=== PATIENT | female | born 1955 | race Caucasian/White ===

== ENCOUNTER 2018-01-11 16:08 | Inpatient (IN) | payer BC ==
[~2018-01-11] VITALS: Ht 172.7 cm; Wt 75.7 kg
[~2018-01-11 16:08] MED LIST: BUPIVACAINE /PF 0.5% 30 ML VIAL INJ ONE; GLYCOPYRROLATE 0.2 MG/ML VIAL IJ ONE; KETOROLAC TROMETHAMINE 30 MG VIAL IVP ONE; LR 1,000 ML IV.SOLN IV ONE; MIDAZOLAM HCL 5 MG/5 ML VIAL IVP ONE; NEOSTIGMINE METHYLSULFATE 1 MG/ML, 10 ML VIAL IVP ONE; NS 100 ML BAG IV ONE; ONDANSETRON HCL 4 MG/2 ML VIAL IVP ONE; PIPERACILLIN/TAZOBACTAM 3.375 GM/VIAL (ZOSYN) IV ONE; PROPOFOL 200MG/ 20ML VIAL (DIPRIVAN) IV ONE; ROCURONIUM BROMIDE 10 MG/ML (ZEMURON) IV ONE; SEVOFLURANE 15 MIN GAS INH ONE; fentaNYL CITRATE/PF 100 MCG/2 ML AMP IVP ONE
[2018-01-11 16:15] VITALS: BP_SYST 106
[2018-01-11] MEDS ORDERED: NACL 0.9% 1,000 ML IV ONE (19:32)
[2018-01-11] MEDS ORDERED: ONDANSETRON HCL 4 MG/2 ML VIAL IVP ONE (19:45)
[2018-01-11 20:19] LABS: BILIRUBIN,URINE NEGATIVE (NEGATIVE); CLARITY/URINE CLEAR (CLEAR); COLOR,URINE YELLOW (YELLOW); GLUCOSE,URINE NEGATIVE (NEGATIVE); KETONES,URINE TRACE (NEGATIVE); LEUKOCYTE ESTERASE ,URINE NEGATIVE (NEGATIVE); NITRITE, URINE NEGATIVE (NEGATIVE); PROTEIN URINE NEGATIVE (NEGATIVE); UROBILINOGEN,URINE 0.2 (0.2-1.0)
[2018-01-11 20:25] LABS: BLOOD, URINE TRACE (NEGATIVE)
[2018-01-11] MEDS ORDERED: MORPHINE 4 MG/ML INJ. SYRINGE IVP ONE (20:30)
[2018-01-11 20:38] LABS: BASOPHILS # (AUTO) 0.1 K/uL (0.0-0.2); BASOPHILS % (AUTO) 0.4 % (0.0-2.0); HEMATOCRIT 46.7 % (36-48); HEMOGLOBIN 15.4 g/dL (12.0-16.0); LYMPHOCYTES # (AUTO) 2.4 K/uL (1.0-5.5); LYMPHOCYTES % (AUTO) 14.5 % (20.5-51.5); MEAN CORPUSCULAR HEMOGLOBIN 32 pg (27-31); MEAN CORPUSCULAR HGB CONC 33 % (32-36); MEAN CORPUSCULAR VOLUME 96 fL (79.0-98.0); MONOCYTES # (AUTO) 0.4 K/uL (0.0-1.0); MONOCYTES % (AUTO) 2.1 % (1.7-9.3); NEUTROPHILS # (AUTO) 13.8 K/uL (1.8-7.7); PLATELET COUNT (AUTO) 218 K/uL (130-430); RED BLOOD CELL COUNT(AUTO) 4.86 MIL/uL (4.2-6.2); RED CELL DISTRIBUTION WIDTH 12.1 % (9.0-15.0); WHITE BLOOD COUNT (AUTO) 16.7 K/uL (4.8-10.8)
[2018-01-11 20:39] LABS: BACTERIA,URINE RARE /HPF (None Seen); MUCUS,URINE None Seen /LPF (None Seen); RBC,URINE 0-3 /HPF (0-3); WBC,URINE 0-3 /HPF (0-3)
[2018-01-11 20:41] LABS: CALCIUM 9.6 mg/dL (8.4-11.0); CREATININE 1.01 mg/dL (0.55-1.30); POTASSIUM 3.6 mmol/L (3.5-5.1)
[2018-01-11 20:42] LABS: PROTHROMBIN TIME 10.1 SECS (9.5-12.5)
[2018-01-11 20:45] LABS: TOTAL BILIRUBIN 1.1 mg/dL (0.0-1.0)
[2018-01-11] MEDS ORDERED: IOHEXOL 100 ML IV ONE (22:29)
[2018-01-11] MEDS ORDERED: DEXT10TA18 PO (23:22)
[2018-01-11] MEDS ORDERED: ESCI20TA PO (23:22)
[2018-01-11] MEDS ORDERED: PIPERACILLIN/TAZO 4.5 GM in NS 100 ML IV ONE (23:30)
[2018-01-11 23:51] VITALS: BP_SYST 99
[2018-01-12] VITALS (12 sets, daily range): BP systolic 82–130
[2018-01-12] MEDS ORDERED: DIPHENHYDRAMINE INJ 50 MG/ML VIAL IVP PRN (00:15)
[2018-01-12] MEDS ORDERED: ACETAMINOPHEN 650 MG SUPP.RECT RC PRN (00:15)
[2018-01-12] MEDS ORDERED: metroNIDAZOLE 500 mg/NS 100 ML IV ONE (00:39)
[2018-01-12] MEDS: D5LR 1,000 ML IV SCH ×4 (00:48→18:44)
[2018-01-12] MEDS ORDERED: PANTOPRAZOLE SODIUM 40 MG/VIAL (PROTONIX) IVP SCH (01:00)
[2018-01-12] MEDS: metroNIDAZOLE 500 mg/NS 100 ML IV SCH ×4 (01:56→23:55)
[2018-01-12 07:04] LABS: EOSINOPHILS % (AUTO) 0.1 % (0.0-4.0); HEMOGLOBIN 12.3 g/dL (12.0-16.0); LYMPHOCYTES # (AUTO) 1.6 K/uL (1.0-5.5); LYMPHOCYTES % (AUTO) 8.6 % (20.5-51.5); MEAN CORPUSCULAR HEMOGLOBIN 32 pg (27-31); MEAN CORPUSCULAR HGB CONC 34 % (32-36); MEAN CORPUSCULAR VOLUME 94 fL (79.0-98.0); MONOCYTES # (AUTO) 0.7 K/uL (0.0-1.0); MONOCYTES % (AUTO) 3.6 % (1.7-9.3); NEUTROPHILS # (AUTO) 16.1 K/uL (1.8-7.7); NEUTROPHILS % (AUTO) 87.7 % (40.0-70.0); PLATELET COUNT (AUTO) 177 K/uL (130-430); RED BLOOD CELL COUNT(AUTO) 3.83 MIL/uL (4.2-6.2); RED CELL DISTRIBUTION WIDTH 12.5 % (9.0-15.0); WHITE BLOOD COUNT (AUTO) 18.4 K/uL (4.8-10.8)
[2018-01-12 07:26] LABS: CALCIUM 8.3 mg/dL (8.4-11.0); CREATININE 0.97 mg/dL (0.55-1.30); POTASSIUM 3.8 mmol/L (3.5-5.1)
[2018-01-12 07:30] LABS: ALBUMIN 2.7 g/dL (3.4-4.8); TOTAL BILIRUBIN 0.8 mg/dL (0.0-1.0)
[2018-01-12] MEDS: PANTOPRAZOLE SODIUM 40 MG/VIAL (PROTONIX) IVP SCH (08:43)
[2018-01-12] MEDS ORDERED: KETOROLAC TROMETHAMINE 30 MG VIAL IVP PRN (15:00)
[2018-01-12] MEDS ORDERED: fentaNYL CITRATE/PF 100 MCG/2 ML AMP IVP PRN ×2 (15:00)
[2018-01-12] MEDS ORDERED: ONDANSETRON HCL 4 MG/2 ML VIAL IVP PRN (15:00)
[2018-01-12] MEDS ORDERED: fentaNYL CITRATE/PF 100 MCG/2 ML AMP ONE (16:18)
[2018-01-12] MEDS ORDERED: ONDANSETRON HCL 4 MG/2 ML VIAL ONE (16:20)
[2018-01-12] MEDS ORDERED: NACL 0.9% 1,000 ML IV ONE (17:00)
[2018-01-12 19:39] LABS: HEMATOCRIT 32.2 % (36-48); HEMOGLOBIN 10.3 g/dL (12.0-16.0); MEAN CORPUSCULAR HEMOGLOBIN 31 pg (27-31); MEAN CORPUSCULAR HGB CONC 32 % (32-36); MEAN CORPUSCULAR VOLUME 97 fL (79.0-98.0); PLATELET COUNT (AUTO) 161 K/uL (130-430); RED BLOOD CELL COUNT(AUTO) 3.31 MIL/uL (4.2-6.2); RED CELL DISTRIBUTION WIDTH 12.2 % (9.0-15.0); WHITE BLOOD COUNT (AUTO) 10.6 K/uL (4.8-10.8)
[2018-01-12] MEDS: DOPamine PREMIX 250 ML IV PRN ×2 (19:43→20:07)
[2018-01-12 19:53] LABS: ANION GAP 3 (5-15); CALCIUM 7.5 mg/dL (8.4-11.0); CHLORIDE 107 mmol/L (98-107); CREATININE 1.04 mg/dL (0.55-1.30); GLUCOSE 126 mg/dL (70-99); POTASSIUM 3.8 mmol/L (3.5-5.1); SODIUM SERUM 137 mmol/L (136-145); UREA NITROGEN, BLOOD 10 mg/dL (8-21)
[2018-01-12 19:54] LABS: GFR AFRICAN AMERICAN 69 mL/min (>90)
[2018-01-12 20:00] LABS: ATYPICAL LYMPHOCYTES % 0 % (0-0); BAND % (MANUAL) 20 % (0-6); EOSINOPHILS % (MANUAL) 0 % (0-7); LYMPHOCYTES % (MANUAL) 8 % (20-46); MONOCYTES % (MANUAL) 2 % (0-11)
[2018-01-12 20:01] LABS: BASOPHILS % (MANUAL) 0 % (0-2)
[2018-01-12] MEDS: ONDANSETRON HCL 4 MG/2 ML VIAL IVP PRN (21:06)
[2018-01-13] VITALS (24 sets, daily range): BP systolic 92–116
[2018-01-13] MEDS: MORPHINE 4 MG/ML INJ. SYRINGE IVP PRN ×3 (04:34→21:30)
[2018-01-13] MEDS: ONDANSETRON HCL 4 MG/2 ML VIAL IVP PRN (04:34)
[2018-01-13] MEDS: D5LR 1,000 ML IV SCH ×3 (06:31→17:09)
[2018-01-13 06:43] LABS: CALCIUM 8.1 mg/dL (8.4-11.0); CREATININE 0.92 mg/dL (0.55-1.30); POTASSIUM 3.4 mmol/L (3.5-5.1)
[2018-01-13 06:50] LABS: BASOPHILS # (AUTO) 0.2 K/uL (0.0-0.2); BASOPHILS % (AUTO) 1.8 % (0.0-2.0); EOSINOPHILS % (AUTO) 0.1 % (0.0-4.0); HEMATOCRIT 32.7 % (36-48); HEMOGLOBIN 10.4 g/dL (12.0-16.0); LYMPHOCYTES # (AUTO) 2.1 K/uL (1.0-5.5); LYMPHOCYTES % (AUTO) 15.4 % (20.5-51.5); MEAN CORPUSCULAR HEMOGLOBIN 31 pg (27-31); MEAN CORPUSCULAR HGB CONC 32 % (32-36); MEAN CORPUSCULAR VOLUME 97 fL (79.0-98.0); MONOCYTES # (AUTO) 0.3 K/uL (0.0-1.0); MONOCYTES % (AUTO) 1.9 % (1.7-9.3); NEUTROPHILS # (AUTO) 10.8 K/uL (1.8-7.7); NEUTROPHILS % (AUTO) 80.8 % (40.0-70.0); PLATELET COUNT (AUTO) 168 K/uL (130-430); RED BLOOD CELL COUNT(AUTO) 3.38 MIL/uL (4.2-6.2); RED CELL DISTRIBUTION WIDTH 12.5 % (9.0-15.0); WHITE BLOOD COUNT (AUTO) 13.4 K/uL (4.8-10.8)
[2018-01-13 06:54] LABS: ALBUMIN 2.3 g/dL (3.4-4.8); TOTAL BILIRUBIN 0.7 mg/dL (0.0-1.0)
[2018-01-13] MEDS: PANTOPRAZOLE SODIUM 40 MG/VIAL (PROTONIX) IVP SCH (08:16)
[2018-01-13] MEDS: metroNIDAZOLE 500 mg/NS 100 ML IV SCH ×3 (08:16→23:04)
[2018-01-13] MEDS ORDERED: POTASSIUM CHLORIDE 40 MEQ, LIDOCAINE JECT 2% PF 100 MG 50 MG in NS 250 ML IV ONE (08:45)
[2018-01-13] MEDS: KCL 20 mEq in D5/0.45NS 1000mL 1,000 ML IV SCH ×2 (10:19→23:04)
[2018-01-13] MEDS: DOPamine PREMIX 250 ML IV PRN (13:30)
[2018-01-13] MEDS: AMPICILLIN SODIUM/SULBACTAM NA 3 GM in NS 100 ML IV SCH ×2 (18:20→23:04)
[2018-01-14] VITALS (24 sets, daily range): BP systolic 82–117
[2018-01-14] MEDS: MORPHINE 4 MG/ML INJ. SYRINGE IVP PRN ×3 (03:39→16:03)
[2018-01-14] MEDS: AMPICILLIN SODIUM/SULBACTAM NA 3 GM in NS 100 ML IV SCH ×4 (05:04→23:18)
[2018-01-14 06:55] LABS: BASOPHILS # (AUTO) 0.2 K/uL (0.0-0.2); BASOPHILS % (AUTO) 1.7 % (0.0-2.0); EOSINOPHILS % (AUTO) 0.2 % (0.0-4.0); HEMATOCRIT 28.9 % (36-48); HEMOGLOBIN 9.3 g/dL (12.0-16.0); LYMPHOCYTES # (AUTO) 1.5 K/uL (1.0-5.5); LYMPHOCYTES % (AUTO) 12.9 % (20.5-51.5); MEAN CORPUSCULAR HEMOGLOBIN 31 pg (27-31); MEAN CORPUSCULAR HGB CONC 32 % (32-36); MEAN CORPUSCULAR VOLUME 97 fL (79.0-98.0); MONOCYTES # (AUTO) 0.3 K/uL (0.0-1.0); MONOCYTES % (AUTO) 2.3 % (1.7-9.3); NEUTROPHILS % (AUTO) 82.9 % (40.0-70.0); PLATELET COUNT (AUTO) 165 K/uL (130-430); RED BLOOD CELL COUNT(AUTO) 2.97 MIL/uL (4.2-6.2); RED CELL DISTRIBUTION WIDTH 12.5 % (9.0-15.0)
[2018-01-14 07:20] LABS: CALCIUM 8.2 mg/dL (8.4-11.0); CREATININE 0.72 mg/dL (0.55-1.30); POTASSIUM 3.9 mmol/L (3.5-5.1)
[2018-01-14 07:29] LABS: TOTAL BILIRUBIN 0.3 mg/dL (0.0-1.0)
[2018-01-14] MEDS: PANTOPRAZOLE SODIUM 40 MG/VIAL (PROTONIX) IVP SCH (07:58)
[2018-01-14] MEDS: metroNIDAZOLE 500 mg/NS 100 ML IV SCH ×2 (07:59→15:56)
[2018-01-14] MEDS: DOPamine PREMIX 250 ML IV PRN (08:07)
[2018-01-14] MEDS ORDERED: BISACODYL 10 MG/SUPPOSITORY RC PRN (08:30)
[2018-01-14] MEDS: ONDANSETRON HCL 4 MG/2 ML VIAL IVP PRN (13:40)
[2018-01-14] MEDS: KCL 20 mEq in D5/0.45NS 1000mL 1,000 ML IV SCH ×2 (13:43→20:26)
[2018-01-14] MEDS ORDERED: AMPHET ASP PO SCH (14:00)
[2018-01-14] MEDS ORDERED: AMPHET PO SCH (14:00)
[2018-01-14] MEDS ORDERED: [UNRECOGNIZED DRUG - OTHER] PO SCH (14:00)
[2018-01-14] MEDS ORDERED: D AMPHET PO SCH (14:00)
[2018-01-14] MEDS: ACETAMINOPHEN 325 MG TABLET PO PRN ×2 (15:01→23:17)
[2018-01-14] MEDS ORDERED: COMMUNICATION ORDER XX SCH (19:15)
[2018-01-14] MEDS ORDERED: AMPHETAMINE SALT 10 MG PO SCH (21:00)
[2018-01-15] VITALS (23 sets, daily range): BP systolic 89–156
[2018-01-15] MEDS: metroNIDAZOLE 500 mg/NS 100 ML IV SCH ×3 (00:19→15:57)
[2018-01-15] MEDS: DOPamine PREMIX 250 ML IV PRN (02:22)
[2018-01-15] MEDS: AMPICILLIN SODIUM/SULBACTAM NA 3 GM in NS 100 ML IV SCH ×3 (05:44→17:50)
[2018-01-15 06:12] LABS: BASOPHILS % (AUTO) 0.4 % (0.0-2.0); EOSINOPHILS % (AUTO) 0.4 % (0.0-4.0); HEMATOCRIT 29.2 % (36-48); HEMOGLOBIN 9.4 g/dL (12.0-16.0); LYMPHOCYTES # (AUTO) 1.9 K/uL (1.0-5.5); LYMPHOCYTES % (AUTO) 16.3 % (20.5-51.5); MEAN CORPUSCULAR HEMOGLOBIN 31 pg (27-31); MEAN CORPUSCULAR HGB CONC 32 % (32-36); MEAN CORPUSCULAR VOLUME 97 fL (79.0-98.0); MONOCYTES # (AUTO) 0.5 K/uL (0.0-1.0); NEUTROPHILS # (AUTO) 9.5 K/uL (1.8-7.7); NEUTROPHILS % (AUTO) 78.9 % (40.0-70.0); PLATELET COUNT (AUTO) 218 K/uL (130-430); RED CELL DISTRIBUTION WIDTH 12.7 % (9.0-15.0); WHITE BLOOD COUNT (AUTO) 11.9 K/uL (4.8-10.8)
[2018-01-15] MEDS: KCL 20 mEq in D5/0.45NS 1000mL 1,000 ML IV SCH ×2 (06:28→22:27)
[2018-01-15 06:37] LABS: CALCIUM 8.4 mg/dL (8.4-11.0); CREATININE 0.7 mg/dL (0.55-1.30); POTASSIUM 3.9 mmol/L (3.5-5.1)
[2018-01-15] MEDS: PANTOPRAZOLE SODIUM 40 MG/VIAL (PROTONIX) IVP SCH (08:24)
[2018-01-15] MEDS: CITALOPRAM HYDROBROMIDE 20 MG TABLET PO SCH (08:24)
[2018-01-15] MEDS ORDERED: MULTIVITS,CA,MINERALS/IRON/FA 1 TABLET PO ONE (11:15)
[2018-01-15] MEDS ORDERED: CHOLECALCIFEROL (VITAMIN D3) 2,000 UNIT TABLET PO ONE (11:15)
[2018-01-15] MEDS ORDERED: PATIENT'S OWN TABLET PO PRN (12:00)
[2018-01-15] MEDS ORDERED: FLUDROCORTISONE ACETATE 0.1 MG TABLET( FLORINEF) PO ONE (12:15)
[2018-01-15] MEDS: MULTIVITS,CA,MINERALS/IRON/FA 1 TABLET PO SCH (21:03)
[2018-01-16] VITALS (16 sets, daily range): BP systolic 90–114
[2018-01-16] MEDS: AMPICILLIN SODIUM/SULBACTAM NA 3 GM in NS 100 ML IV SCH ×5 (01:42→23:51)
[2018-01-16] MEDS: metroNIDAZOLE 500 mg/NS 100 ML IV SCH ×4 (01:43→23:51)
[2018-01-16 06:40] LABS: BASOPHILS % (AUTO) 0.3 % (0.0-2.0); EOSINOPHILS # (AUTO) 0.1 K/uL (0.0-0.4); EOSINOPHILS % (AUTO) 0.7 % (0.0-4.0); HEMATOCRIT 28.6 % (36-48); HEMOGLOBIN 9.2 g/dL (12.0-16.0); LYMPHOCYTES % (AUTO) 19.7 % (20.5-51.5); MEAN CORPUSCULAR HEMOGLOBIN 31 pg (27-31); MEAN CORPUSCULAR HGB CONC 32 % (32-36); MEAN CORPUSCULAR VOLUME 96 fL (79.0-98.0); MONOCYTES # (AUTO) 0.6 K/uL (0.0-1.0); MONOCYTES % (AUTO) 5.6 % (1.7-9.3); NEUTROPHILS # (AUTO) 7.6 K/uL (1.8-7.7); NEUTROPHILS % (AUTO) 73.7 % (40.0-70.0); PLATELET COUNT (AUTO) 225 K/uL (130-430); RED BLOOD CELL COUNT(AUTO) 2.98 MIL/uL (4.2-6.2); RED CELL DISTRIBUTION WIDTH 12.9 % (9.0-15.0); WHITE BLOOD COUNT (AUTO) 10.3 K/uL (4.8-10.8)
[2018-01-16 06:53] LABS: CALCIUM 8.3 mg/dL (8.4-11.0); CREATININE 0.73 mg/dL (0.55-1.30)
[2018-01-16 08:19] LABS: POTASSIUM 2.9 mmol/L (3.5-5.1)
[2018-01-16] MEDS: CITALOPRAM HYDROBROMIDE 20 MG TABLET PO SCH (09:15)
[2018-01-16] MEDS: PANTOPRAZOLE SODIUM 40 MG/VIAL (PROTONIX) IVP SCH (09:15)
[2018-01-16] MEDS: CHOLECALCIFEROL (VITAMIN D3) 2,000 UNIT TABLET PO SCH (09:15)
[2018-01-16] MEDS: MULTIVITS,CA,MINERALS/IRON/FA 1 TABLET PO SCH ×2 (09:15→20:10)
[2018-01-16] MEDS: FLUDROCORTISONE ACETATE 0.1 MG TABLET( FLORINEF) PO SCH (09:16)
[2018-01-16] MEDS ORDERED: POTASSIUM CHLORIDE 40 MEQ, LIDOCAINE JECT 2% PF 100 MG 50 MG in NS 250 ML IV ONE (09:45)
[2018-01-16] MEDS ORDERED: POTASSIUM CHLORIDE 20 MEQ TAB.PRT.SR PO ONE (09:45)
[2018-01-16] MEDS: MORPHINE 4 MG/ML INJ. SYRINGE IVP PRN (14:25)
[2018-01-16] MEDS: POTASSIUM CHLORIDE 20 MEQ TAB.PRT.SR PO SCH ×2 (16:41→20:10)
[2018-01-16] MEDS: ACETAMINOPHEN 325 MG TABLET PO PRN (20:16)
[2018-01-16] MEDS: SIMETHICONE 80 MG TAB.CHEW PO SCH (20:43)
[2018-01-17 01:45] VITALS: BP_SYST 86
[2018-01-17] MEDS: KCL 20 mEq in D5/0.45NS 1000mL 1,000 ML IV SCH ×2 (03:23→12:02)
[2018-01-17 03:38] VITALS: BP_SYST 93
[2018-01-17 05:37] VITALS: BP_SYST 103
[2018-01-17] MEDS: SIMETHICONE 80 MG TAB.CHEW PO SCH ×3 (05:54→20:11)
[2018-01-17] MEDS: AMPICILLIN SODIUM/SULBACTAM NA 3 GM in NS 100 ML IV SCH ×3 (05:54→18:19)
[2018-01-17 07:03] LABS: BASOPHILS % (AUTO) 0.5 % (0.0-2.0); EOSINOPHILS # (AUTO) 0.1 K/uL (0.0-0.4); EOSINOPHILS % (AUTO) 0.8 % (0.0-4.0); HEMATOCRIT 30.2 % (36-48); HEMOGLOBIN 9.5 g/dL (12.0-16.0); LYMPHOCYTES % (AUTO) 21.1 % (20.5-51.5); MEAN CORPUSCULAR HEMOGLOBIN 31 pg (27-31); MEAN CORPUSCULAR HGB CONC 32 % (32-36); MEAN CORPUSCULAR VOLUME 97 fL (79.0-98.0); MONOCYTES # (AUTO) 0.6 K/uL (0.0-1.0); MONOCYTES % (AUTO) 5.9 % (1.7-9.3); NEUTROPHILS % (AUTO) 71.7 % (40.0-70.0); PLATELET COUNT (AUTO) 260 K/uL (130-430); RED BLOOD CELL COUNT(AUTO) 3.11 MIL/uL (4.2-6.2); RED CELL DISTRIBUTION WIDTH 12.9 % (9.0-15.0); WHITE BLOOD COUNT (AUTO) 9.7 K/uL (4.8-10.8)
[2018-01-17 07:26] LABS: ALBUMIN 1.8 g/dL (3.4-4.8); CALCIUM 8.7 mg/dL (8.4-11.0); CREATININE 0.62 mg/dL (0.55-1.30); POTASSIUM 3.6 mmol/L (3.5-5.1); TOTAL BILIRUBIN 0.2 mg/dL (0.0-1.0)
[2018-01-17 07:54] VITALS: BP_SYST 112
[2018-01-17] MEDS: CITALOPRAM HYDROBROMIDE 20 MG TABLET PO SCH (09:14)
[2018-01-17] MEDS: POTASSIUM CHLORIDE 20 MEQ TAB.PRT.SR PO SCH ×3 (09:14→20:10)
[2018-01-17] MEDS: MULTIVITS,CA,MINERALS/IRON/FA 1 TABLET PO SCH ×2 (09:14→20:11)
[2018-01-17] MEDS: FLUDROCORTISONE ACETATE 0.1 MG TABLET( FLORINEF) PO SCH (09:14)
[2018-01-17] MEDS: CHOLECALCIFEROL (VITAMIN D3) 2,000 UNIT TABLET PO SCH (09:15)
[2018-01-17] MEDS: PANTOPRAZOLE SODIUM 40 MG/VIAL (PROTONIX) IVP SCH (09:15)
[2018-01-17] MEDS: metroNIDAZOLE 500 mg/NS 100 ML IV SCH ×2 (09:15→16:14)
[2018-01-17] MEDS ORDERED: DIATR MEGLU/DIATRIZ SOD 30 ML SOLUTION PO ONE (09:33)
[2018-01-17] MEDS: ONDANSETRON HCL 4 MG/2 ML VIAL IVP PRN (10:53)
[2018-01-17 12:02] VITALS: BP_SYST 127
[2018-01-17] MEDS ORDERED: IOHEXOL 100 ML IV ONE (12:26)
[2018-01-17] MEDS: MORPHINE 4 MG/ML INJ. SYRINGE IVP PRN (13:06)
[2018-01-17 16:02] VITALS: BP_SYST 103
[2018-01-17] MEDS: LR 1,000 ML IV SCH (18:05)
[2018-01-17] MEDS ORDERED: AMPICILLIN SODIUM/SULBACTAM NA 3 GM VIAL ONE (18:17)
[2018-01-18] MEDS: AMPICILLIN SODIUM/SULBACTAM NA 3 GM in NS 100 ML IV SCH ×4 (00:11→18:04)
[2018-01-18] MEDS: metroNIDAZOLE 500 mg/NS 100 ML IV SCH ×3 (00:23→15:56)
[2018-01-18] MEDS: LR 1,000 ML IV SCH ×2 (07:18→15:59)
[2018-01-18 07:25] LABS: CALCIUM 8.7 mg/dL (8.4-11.0); CREATININE 0.67 mg/dL (0.55-1.30); POTASSIUM 3.8 mmol/L (3.5-5.1)
[2018-01-18 07:32] LABS: TOTAL IRON BIND. CAPACITY 101 ug/dL (250-450)
[2018-01-18 08:00] VITALS: BP_SYST 120
[2018-01-18 08:16] LABS: BASOPHILS % (AUTO) 0.2 % (0.0-2.0); EOSINOPHILS # (AUTO) 0.1 K/uL (0.0-0.4); EOSINOPHILS % (AUTO) 0.6 % (0.0-4.0); HEMOGLOBIN 9.5 g/dL (12.0-16.0); LYMPHOCYTES # (AUTO) 2.3 K/uL (1.0-5.5); MEAN CORPUSCULAR HEMOGLOBIN 31 pg (27-31); MEAN CORPUSCULAR HGB CONC 32 % (32-36); MEAN CORPUSCULAR VOLUME 97 fL (79.0-98.0); MONOCYTES # (AUTO) 0.6 K/uL (0.0-1.0); MONOCYTES % (AUTO) 5.4 % (1.7-9.3); NEUTROPHILS # (AUTO) 7.8 K/uL (1.8-7.7); NEUTROPHILS % (AUTO) 72.8 % (40.0-70.0); PLATELET COUNT (AUTO) 318 K/uL (130-430); RED CELL DISTRIBUTION WIDTH 12.9 % (9.0-15.0); WHITE BLOOD COUNT (AUTO) 10.8 K/uL (4.8-10.8)
[2018-01-18] MEDS: MULTIVITS,CA,MINERALS/IRON/FA 1 TABLET PO SCH ×2 (09:43→21:24)
[2018-01-18] MEDS: POTASSIUM CHLORIDE 20 MEQ TAB.PRT.SR PO SCH ×2 (09:43→21:23)
[2018-01-18] MEDS: FLUDROCORTISONE ACETATE 0.1 MG TABLET( FLORINEF) PO SCH (09:43)
[2018-01-18] MEDS: PANTOPRAZOLE SODIUM 40 MG/VIAL (PROTONIX) IVP SCH (09:44)
[2018-01-18] MEDS: CHOLECALCIFEROL (VITAMIN D3) 2,000 UNIT TABLET PO SCH (09:44)
[2018-01-18] MEDS: CITALOPRAM HYDROBROMIDE 20 MG TABLET PO SCH (09:44)
[2018-01-18] MEDS: SIMETHICONE 80 MG TAB.CHEW PO SCH ×3 (09:44→21:23)
[2018-01-18] MEDS: MORPHINE 4 MG/ML INJ. SYRINGE IVP PRN ×2 (10:06→23:05)
[2018-01-18 10:29] VITALS: BP_SYST 112
[2018-01-18 17:02] VITALS: BP_SYST 105
[2018-01-18] MEDS: SOD FERRIC GLUC COMPLEX/SUC 125 MG in NS 100 ML IV SCH (17:57)
[2018-01-18] MEDS: LIPASE/PROTEASE/AMYLASE 1 CAP PO SCH (17:58)
[2018-01-18 18:10] VITALS: BP_SYST 105
[2018-01-18 19:00] VITALS: BP_SYST 116
[2018-01-18 20:00] VITALS: BP_SYST 116
[2018-01-19] VITALS: BP_SYST 113
[2018-01-19] MEDS: metroNIDAZOLE 500 mg/NS 100 ML IV SCH (00:26)
[2018-01-19] MEDS: AMPICILLIN SODIUM/SULBACTAM NA 3 GM in NS 100 ML IV SCH ×7 (00:27→23:20)
[2018-01-19] MEDS: LR 1,000 ML IV SCH (05:06)
[2018-01-19 06:51] LABS: BASOPHILS % (AUTO) 0.2 % (0.0-2.0); EOSINOPHILS # (AUTO) 0.1 K/uL (0.0-0.4); EOSINOPHILS % (AUTO) 0.8 % (0.0-4.0); HEMATOCRIT 28.6 % (36-48); HEMOGLOBIN 9.3 g/dL (12.0-16.0); LYMPHOCYTES # (AUTO) 2.4 K/uL (1.0-5.5); LYMPHOCYTES % (AUTO) 20.6 % (20.5-51.5); MEAN CORPUSCULAR HEMOGLOBIN 31 pg (27-31); MEAN CORPUSCULAR HGB CONC 33 % (32-36); MEAN CORPUSCULAR VOLUME 95 fL (79.0-98.0); MONOCYTES # (AUTO) 0.6 K/uL (0.0-1.0); MONOCYTES % (AUTO) 5.5 % (1.7-9.3); NEUTROPHILS # (AUTO) 8.5 K/uL (1.8-7.7); NEUTROPHILS % (AUTO) 72.9 % (40.0-70.0); PLATELET COUNT (AUTO) 390 K/uL (130-430); RED CELL DISTRIBUTION WIDTH 12.8 % (9.0-15.0); WHITE BLOOD COUNT (AUTO) 11.6 K/uL (4.8-10.8)
[2018-01-19 07:34] LABS: CREATININE 0.66 mg/dL (0.55-1.30); POTASSIUM 3.6 mmol/L (3.5-5.1)
[2018-01-19 08:20] VITALS: BP_SYST 121
[2018-01-19] MEDS: PANTOPRAZOLE SODIUM 40 MG/VIAL (PROTONIX) IVP SCH (08:33)
[2018-01-19] MEDS: POTASSIUM CHLORIDE 20 MEQ TAB.PRT.SR PO SCH ×2 (08:34→20:43)
[2018-01-19] MEDS: CITALOPRAM HYDROBROMIDE 20 MG TABLET PO SCH (08:34)
[2018-01-19] MEDS: CHOLECALCIFEROL (VITAMIN D3) 2,000 UNIT TABLET PO SCH (08:34)
[2018-01-19] MEDS: MULTIVITS,CA,MINERALS/IRON/FA 1 TABLET PO SCH ×2 (08:34→20:43)
[2018-01-19] MEDS: LIPASE/PROTEASE/AMYLASE 1 CAP PO SCH ×3 (08:34→18:16)
[2018-01-19] MEDS: MORPHINE 4 MG/ML INJ. SYRINGE IVP PRN ×2 (08:35→18:17)
[2018-01-19] MEDS: SIMETHICONE 80 MG TAB.CHEW PO SCH ×3 (09:53→20:43)
[2018-01-19 12:00] VITALS: BP_SYST 121
[2018-01-19 16:14] VITALS: BP_SYST 119
[2018-01-19] MEDS: SOD FERRIC GLUC COMPLEX/SUC 125 MG in NS 100 ML IV SCH (16:47)
[2018-01-19 20:00] VITALS: BP_SYST 109; BP_SYST 121
[2018-01-20 00:36] VITALS: BP_SYST 113
[2018-01-20] MEDS: LR 1,000 ML IV SCH ×2 (01:59→15:46)
[2018-01-20] MEDS: AMPICILLIN SODIUM/SULBACTAM NA 3 GM in NS 100 ML IV SCH ×2 (05:02→11:13)
[2018-01-20 08:00] VITALS: BP_SYST 114
[2018-01-20] MEDS: LIPASE/PROTEASE/AMYLASE 1 CAP PO SCH ×3 (08:30→17:48)
[2018-01-20] MEDS: PANTOPRAZOLE SODIUM 40 MG/VIAL (PROTONIX) IVP SCH (08:30)
[2018-01-20] MEDS: CITALOPRAM HYDROBROMIDE 20 MG TABLET PO SCH (08:30)
[2018-01-20] MEDS: MULTIVITS,CA,MINERALS/IRON/FA 1 TABLET PO SCH ×2 (08:30→20:44)
[2018-01-20] MEDS: CHOLECALCIFEROL (VITAMIN D3) 2,000 UNIT TABLET PO SCH (08:31)
[2018-01-20] MEDS: POTASSIUM CHLORIDE 20 MEQ TAB.PRT.SR PO SCH ×2 (08:31→20:44)
[2018-01-20] MEDS: SIMETHICONE 80 MG TAB.CHEW PO SCH ×3 (08:39→20:44)
[2018-01-20 12:00] VITALS: BP_SYST 121
[2018-01-20] MEDS: MORPHINE 4 MG/ML INJ. SYRINGE IVP PRN (14:54)
[2018-01-20 16:00] VITALS: BP_SYST 122
[2018-01-20] MEDS ORDERED: LACTOBACILLUS RHAMNOSUS GG 1 CAP CAPSULE PO ONE (16:45)
[2018-01-20 20:00] VITALS: BP_SYST 109
[2018-01-20] MEDS: LACTOBACILLUS RHAMNOSUS GG 1 CAP CAPSULE PO SCH (20:44)
[2018-01-21 01:10] VITALS: BP_SYST 121
[2018-01-21] MEDS: LR 1,000 ML IV SCH (06:09)
[2018-01-21 06:53] LABS: BASOPHILS % (AUTO) 0.1 % (0.0-2.0); EOSINOPHILS # (AUTO) 0.1 K/uL (0.0-0.4); EOSINOPHILS % (AUTO) 0.8 % (0.0-4.0); HEMATOCRIT 31.1 % (36-48); HEMOGLOBIN 9.9 g/dL (12.0-16.0); LYMPHOCYTES # (AUTO) 2.8 K/uL (1.0-5.5); MEAN CORPUSCULAR HEMOGLOBIN 31 pg (27-31); MEAN CORPUSCULAR HGB CONC 32 % (32-36); MEAN CORPUSCULAR VOLUME 97 fL (79.0-98.0); MONOCYTES # (AUTO) 0.6 K/uL (0.0-1.0); MONOCYTES % (AUTO) 4.6 % (1.7-9.3); NEUTROPHILS # (AUTO) 9.8 K/uL (1.8-7.7); NEUTROPHILS % (AUTO) 73.5 % (40.0-70.0); PLATELET COUNT (AUTO) 463 K/uL (130-430); RED BLOOD CELL COUNT(AUTO) 3.22 MIL/uL (4.2-6.2); RED CELL DISTRIBUTION WIDTH 13.2 % (9.0-15.0); WHITE BLOOD COUNT (AUTO) 13.3 K/uL (4.8-10.8)
[2018-01-21 07:13] LABS: CALCIUM 8.5 mg/dL (8.4-11.0); CREATININE 0.65 mg/dL (0.55-1.30); POTASSIUM 4.3 mmol/L (3.5-5.1)
[2018-01-21 07:14] LABS: TOTAL BILIRUBIN 0.3 mg/dL (0.0-1.0)
[2018-01-21 07:30] VITALS: BP_SYST 112
[2018-01-21] MEDS: LACTOBACILLUS RHAMNOSUS GG 1 CAP CAPSULE PO SCH ×2 (08:15→21:27)
[2018-01-21] MEDS: SIMETHICONE 80 MG TAB.CHEW PO SCH ×3 (08:16→21:27)
[2018-01-21] MEDS: LIPASE/PROTEASE/AMYLASE 1 CAP PO SCH ×3 (08:16→18:06)
[2018-01-21] MEDS: CITALOPRAM HYDROBROMIDE 20 MG TABLET PO SCH (08:16)
[2018-01-21] MEDS: CHOLECALCIFEROL (VITAMIN D3) 2,000 UNIT TABLET PO SCH (08:16)
[2018-01-21] MEDS: POTASSIUM CHLORIDE 20 MEQ TAB.PRT.SR PO SCH (08:16)
[2018-01-21] MEDS: MULTIVITS,CA,MINERALS/IRON/FA 1 TABLET PO SCH ×2 (08:16→21:28)
[2018-01-21] MEDS: PANTOPRAZOLE SODIUM 40 MG/VIAL (PROTONIX) IVP SCH (08:17)
[2018-01-21] MEDS ORDERED: FLUCONAZOLE 200 mg/ NS 100 ML IV ONE (11:30)
[2018-01-21 12:33] VITALS: BP_SYST 111
[2018-01-21] MEDS: ACETAMINOPHEN 325 MG TABLET PO PRN ×2 (14:51→23:42)
[2018-01-21] MEDS: metroNIDAZOLE 500 mg/NS 100 ML IV SCH ×2 (16:13→21:30)
[2018-01-21 16:30] VITALS: BP_SYST 126
[2018-01-21] MEDS ORDERED: CYANOCOBALAMIN 1000 MCG/ML VIAL IM ONE (17:15)
[2018-01-21] MEDS ORDERED: LOPERAMIDE HCL 2 MG CAPSULE PO ONE (18:00)
[2018-01-21] MEDS ORDERED: LOPERAMIDE HCL 2 MG CAPSULE PO PRN (18:00)
[2018-01-21 20:00] VITALS: BP_SYST 107
[2018-01-21 20:10] VITALS: BP_SYST 17
[2018-01-22 02:38] VITALS: BP_SYST 100
[2018-01-22] MEDS: metroNIDAZOLE 500 mg/NS 100 ML IV SCH ×3 (05:22→21:04)
[2018-01-22 07:27] LABS: BASOPHILS % (AUTO) 0.3 % (0.0-2.0); EOSINOPHILS # (AUTO) 0.1 K/uL (0.0-0.4); EOSINOPHILS % (AUTO) 0.9 % (0.0-4.0); HEMATOCRIT 31.3 % (36-48); HEMOGLOBIN 10.4 g/dL (12.0-16.0); LYMPHOCYTES # (AUTO) 2.8 K/uL (1.0-5.5); LYMPHOCYTES % (AUTO) 18.5 % (20.5-51.5); MEAN CORPUSCULAR HEMOGLOBIN 32 pg (27-31); MEAN CORPUSCULAR HGB CONC 33 % (32-36); MEAN CORPUSCULAR VOLUME 96 fL (79.0-98.0); MONOCYTES # (AUTO) 0.6 K/uL (0.0-1.0); MONOCYTES % (AUTO) 3.7 % (1.7-9.3); NEUTROPHILS # (AUTO) 11.4 K/uL (1.8-7.7); NEUTROPHILS % (AUTO) 76.6 % (40.0-70.0); PLATELET COUNT (AUTO) 493 K/uL (130-430); RED BLOOD CELL COUNT(AUTO) 3.26 MIL/uL (4.2-6.2); RED CELL DISTRIBUTION WIDTH 13.3 % (9.0-15.0); WHITE BLOOD COUNT (AUTO) 14.9 K/uL (4.8-10.8)
[2018-01-22 07:30] VITALS: BP_SYST 110
[2018-01-22 07:44] LABS: CALCIUM 8.6 mg/dL (8.4-11.0); CREATININE 0.83 mg/dL (0.55-1.30)
[2018-01-22] MEDS: SIMETHICONE 80 MG TAB.CHEW PO SCH ×3 (08:32→21:05)
[2018-01-22] MEDS: LIPASE/PROTEASE/AMYLASE 1 CAP PO SCH ×3 (08:33→18:05)
[2018-01-22] MEDS: MULTIVITS,CA,MINERALS/IRON/FA 1 TABLET PO SCH ×2 (08:33→21:04)
[2018-01-22] MEDS: CYANOCOBALAMIN 1000 mCg TABLET PO SCH (08:33)
[2018-01-22] MEDS: LACTOBACILLUS RHAMNOSUS GG 1 CAP CAPSULE PO SCH ×2 (08:34→21:04)
[2018-01-22] MEDS: CHOLECALCIFEROL (VITAMIN D3) 2,000 UNIT TABLET PO SCH (08:34)
[2018-01-22] MEDS: CITALOPRAM HYDROBROMIDE 20 MG TABLET PO SCH (08:35)
[2018-01-22] MEDS ORDERED: FLUCONAZOLE 200 MG TABLET (DIFLUCAN) PO ONE (12:00)
[2018-01-22 12:10] VITALS: BP_SYST 140
[2018-01-22] MEDS ORDERED: VANCOMYCIN HCL 1 GM/NS PREMIX 250 ML IV ONE (13:00)
[2018-01-22] MEDS: ACETAMINOPHEN 325 MG TABLET PO PRN (13:46)
[2018-01-22 17:31] VITALS: BP_SYST 114
[2018-01-22] MEDS ORDERED: COMMUNICATION ORDER XX ONE (18:15)
[2018-01-22 18:17] LABS: BILIRUBIN,URINE NEGATIVE (NEGATIVE); CLARITY/URINE CLEAR (CLEAR); COLOR,URINE YELLOW (YELLOW); GLUCOSE,URINE NEGATIVE (NEGATIVE); KETONES,URINE NEGATIVE (NEGATIVE); LEUKOCYTE ESTERASE ,URINE NEGATIVE (NEGATIVE); NITRITE, URINE NEGATIVE (NEGATIVE); PROTEIN URINE NEGATIVE (NEGATIVE); UROBILINOGEN,URINE 0.2 (0.2-1.0)
[2018-01-22 18:18] LABS: BLOOD, URINE TRACE (NEGATIVE)
[2018-01-22 18:20] LABS: BACTERIA,URINE FEW /HPF (None Seen); RBC,URINE 0-3 /HPF (0-3); WBC,URINE 0-3 /HPF (0-3)
[2018-01-22] MEDS: ESTRADIOL 0.075 MG TP SCH (18:35)
[2018-01-22 20:00] VITALS: BP_SYST 100
[2018-01-22] MEDS: PROGESTERONE 100 MG PO SCH (21:05)
[2018-01-23 00:22] VITALS: BP_SYST 106
[2018-01-23 06:50] LABS: CALCIUM 8.3 mg/dL (8.4-11.0); CREATININE 0.88 mg/dL (0.55-1.30); POTASSIUM 4.4 mmol/L (3.5-5.1)
[2018-01-23] MEDS: metroNIDAZOLE 500 mg/NS 100 ML IV SCH ×3 (06:56→21:54)
[2018-01-23 06:59] LABS: BASOPHILS % (AUTO) 0.1 % (0.0-2.0); EOSINOPHILS # (AUTO) 0.1 K/uL (0.0-0.4); EOSINOPHILS % (AUTO) 0.8 % (0.0-4.0); HEMATOCRIT 33.5 % (36-48); HEMOGLOBIN 11.2 g/dL (12.0-16.0); LYMPHOCYTES # (AUTO) 2.8 K/uL (1.0-5.5); MEAN CORPUSCULAR HEMOGLOBIN 33 pg (27-31); MEAN CORPUSCULAR HGB CONC 34 % (32-36); MEAN CORPUSCULAR VOLUME 97 fL (79.0-98.0); MONOCYTES # (AUTO) 0.7 K/uL (0.0-1.0); MONOCYTES % (AUTO) 4.5 % (1.7-9.3); NEUTROPHILS # (AUTO) 12.1 K/uL (1.8-7.7); NEUTROPHILS % (AUTO) 76.6 % (40.0-70.0); RED BLOOD CELL COUNT(AUTO) 3.44 MIL/uL (4.2-6.2); RED CELL DISTRIBUTION WIDTH 13.4 % (9.0-15.0)
[2018-01-23 07:14] LABS: WHITE BLOOD COUNT (AUTO) 15.7 K/uL (4.8-10.8)
[2018-01-23 08:00] VITALS: BP_SYST 105
[2018-01-23 08:48] LABS: PLATELET COUNT (AUTO) 551 K/uL (130-430)
[2018-01-23] MEDS ORDERED: FLUCONAZOLE 200 MG TABLET (DIFLUCAN) PO SCH (09:00)
[2018-01-23] MEDS: LIPASE/PROTEASE/AMYLASE 1 CAP PO SCH ×3 (09:00→18:00)
[2018-01-23] MEDS: SIMETHICONE 80 MG TAB.CHEW PO SCH ×3 (09:00→21:00)
[2018-01-23] MEDS: CYANOCOBALAMIN 1000 mCg TABLET PO SCH (09:01)
[2018-01-23] MEDS: LACTOBACILLUS RHAMNOSUS GG 1 CAP CAPSULE PO SCH ×2 (09:01→21:00)
[2018-01-23] MEDS: MULTIVITS,CA,MINERALS/IRON/FA 1 TABLET PO SCH ×2 (09:01→21:00)
[2018-01-23] MEDS: CITALOPRAM HYDROBROMIDE 20 MG TABLET PO SCH (09:02)
[2018-01-23] MEDS: CHOLECALCIFEROL (VITAMIN D3) 2,000 UNIT TABLET PO SCH (09:02)
[2018-01-23 12:39] VITALS: BP_SYST 103
[2018-01-23] MEDS ORDERED: DIATR MEGLU/DIATRIZ SOD 30 ML SOLUTION PO ONE (14:59)
[2018-01-23] MEDS: ONDANSETRON HCL 4 MG/2 ML VIAL IVP PRN ×2 (15:18→19:05)
[2018-01-23] MEDS: PIPERACILLIN/TAZO 4.5GM/DEX-IS 100 ML IV SCH ×2 (15:34→23:27)
[2018-01-23 16:35] VITALS: BP_SYST 113
[2018-01-23] MEDS ORDERED: IOHEXOL 100 ML IV ONE (17:09)
[2018-01-23] MEDS ORDERED: D5LR 1,000 ML IV SCH (19:00)
[2018-01-23] MEDS ORDERED: ONDANSETRON HCL 4 MG/2 ML VIAL IVP PRN (19:30)
[2018-01-23] MEDS ORDERED: MORPHINE 4 MG/ML INJ. SYRINGE IVP PRN ×2 (19:30)
[2018-01-23 20:00] VITALS: BP_SYST 110
[2018-01-23] MEDS: PROGESTERONE 100 MG PO SCH (21:00)
[2018-01-23] MEDS ORDERED: VANCOMYCIN HCL 1,500 MG in NS 250 ML IV ONE (21:30)
[2018-01-23] MEDS ORDERED: VANCOMYCIN HCL 1000 MG/VIAL IV ONE (21:42)
[2018-01-23] MEDS ORDERED: VANCOMYCIN HCL 500 MG/VIAL IV ONE (21:42)
[2018-01-23] MEDS: METOCLOPRAMIDE HCL 10 MG/2 ML VIAL IVP SCH (21:45)
[2018-01-23] MEDS: D5LR 1,000 ML IV SCH (21:53)
[2018-01-23] MEDS ORDERED: METOCLOPRAMIDE HCL 10 MG/2 ML VIAL IVP SCH (22:30)
[2018-01-24 03:41] VITALS: BP_SYST 102
[2018-01-24] MEDS: metroNIDAZOLE 500 mg/NS 100 ML IV SCH ×3 (05:23→23:17)
[2018-01-24] MEDS: D5LR 1,000 ML IV SCH ×3 (05:25→23:16)
[2018-01-24 06:54] LABS: BASOPHILS % (AUTO) 0.2 % (0.0-2.0); EOSINOPHILS # (AUTO) 0.1 K/uL (0.0-0.4); EOSINOPHILS % (AUTO) 0.4 % (0.0-4.0); HEMATOCRIT 35.2 % (36-48); LYMPHOCYTES # (AUTO) 3.2 K/uL (1.0-5.5); MEAN CORPUSCULAR HEMOGLOBIN 33 pg (27-31); MEAN CORPUSCULAR HGB CONC 34 % (32-36); MEAN CORPUSCULAR VOLUME 95 fL (79.0-98.0); MONOCYTES # (AUTO) 0.8 K/uL (0.0-1.0); MONOCYTES % (AUTO) 5.8 % (1.7-9.3); NEUTROPHILS # (AUTO) 9.4 K/uL (1.8-7.7); NEUTROPHILS % (AUTO) 69.6 % (40.0-70.0); PLATELET COUNT (AUTO) 629 K/uL (130-430); RED CELL DISTRIBUTION WIDTH 13.4 % (9.0-15.0); WHITE BLOOD COUNT (AUTO) 13.5 K/uL (4.8-10.8)
[2018-01-24] MEDS: PIPERACILLIN/TAZO 4.5GM/DEX-IS 100 ML IV SCH ×2 (06:55→14:07)
[2018-01-24 07:14] LABS: CREATININE 0.91 mg/dL (0.55-1.30); POTASSIUM 3.8 mmol/L (3.5-5.1)
[2018-01-24 07:23] LABS: ALBUMIN 2.6 g/dL (3.4-4.8); TOTAL BILIRUBIN 0.4 mg/dL (0.0-1.0)
[2018-01-24] MEDS: METOCLOPRAMIDE HCL 10 MG/2 ML VIAL IVP SCH ×4 (07:43→17:43)
[2018-01-24] MEDS: LIPASE/PROTEASE/AMYLASE 1 CAP PO SCH ×3 (08:00→17:40)
[2018-01-24] MEDS: MULTIVITS,CA,MINERALS/IRON/FA 1 TABLET PO SCH ×2 (09:00→21:00)
[2018-01-24] MEDS: LACTOBACILLUS RHAMNOSUS GG 1 CAP CAPSULE PO SCH ×2 (09:00→21:00)
[2018-01-24] MEDS: CITALOPRAM HYDROBROMIDE 20 MG TABLET PO SCH (09:00)
[2018-01-24] MEDS: CYANOCOBALAMIN 1000 mCg TABLET PO SCH (09:00)
[2018-01-24] MEDS: CHOLECALCIFEROL (VITAMIN D3) 2,000 UNIT TABLET PO SCH (09:00)
[2018-01-24] MEDS: SIMETHICONE 80 MG TAB.CHEW PO SCH ×3 (09:00→21:00)
[2018-01-24] MEDS ORDERED: ENOXAPARIN SODIUM 40 MG/0.4 ML SYRINGE SUBCUT ONE (09:45)
[2018-01-24] MEDS: VANCOMYCIN HCL 1 GM/NS PREMIX 250 ML IV SCH (11:09)
[2018-01-24 12:00] VITALS: BP_SYST 94
[2018-01-24] MEDS ORDERED: DEXTROSE 50% JECT 50 ML DISP.SYRIN IVP PRN (13:00)
[2018-01-24] MEDS ORDERED: *TPN PER PHARMACY XX PRN (13:00)
[2018-01-24 13:41] LABS: INR 1.1 (0.8-1.2); PROTHROMBIN TIME 11.4 SECS (9.5-12.5)
[2018-01-24 16:11] VITALS: BP_SYST 95
[2018-01-24] MEDS: FLUCONAZOLE 200 mg/ NS 100 ML IV SCH (16:54)
[2018-01-24 20:00] VITALS: BP_SYST 101
[2018-01-24] MEDS: PROGESTERONE 100 MG PO SCH (21:00)
[2018-01-24 21:20] VITALS: BP_SYST 95
[2018-01-24] MEDS: ENOXAPARIN SODIUM 40 MG/0.4 ML SYRINGE SUBCUT SCH (23:19)
[2018-01-25] MEDS: METOCLOPRAMIDE HCL 10 MG/2 ML VIAL IVP SCH ×4 (00:55→16:58)
[2018-01-25] MEDS: PIPERACILLIN/TAZO 4.5GM/DEX-IS 100 ML IV SCH ×4 (00:56→21:52)
[2018-01-25 01:18] VITALS: BP_SYST 114
[2018-01-25] MEDS: VANCOMYCIN HCL 1 GM/NS PREMIX 250 ML IV SCH ×3 (02:00→21:52)
[2018-01-25] MEDS: D5LR 1,000 ML IV SCH ×3 (05:50→12:23)
[2018-01-25] MEDS: metroNIDAZOLE 500 mg/NS 100 ML IV SCH ×3 (06:12→21:52)
[2018-01-25 07:15] LABS: BASOPHILS % (AUTO) 0.4 % (0.0-2.0); EOSINOPHILS # (AUTO) 0.1 K/uL (0.0-0.4); EOSINOPHILS % (AUTO) 0.7 % (0.0-4.0); HEMATOCRIT 33.6 % (36-48); HEMOGLOBIN 11.3 g/dL (12.0-16.0); LYMPHOCYTES # (AUTO) 2.8 K/uL (1.0-5.5); LYMPHOCYTES % (AUTO) 26.2 % (20.5-51.5); MEAN CORPUSCULAR HEMOGLOBIN 32 pg (27-31); MEAN CORPUSCULAR HGB CONC 34 % (32-36); MEAN CORPUSCULAR VOLUME 95 fL (79.0-98.0); MONOCYTES # (AUTO) 0.6 K/uL (0.0-1.0); MONOCYTES % (AUTO) 5.7 % (1.7-9.3); NEUTROPHILS # (AUTO) 7.2 K/uL (1.8-7.7); PLATELET COUNT (AUTO) 564 K/uL (130-430); RED BLOOD CELL COUNT(AUTO) 3.54 MIL/uL (4.2-6.2); RED CELL DISTRIBUTION WIDTH 13.3 % (9.0-15.0); WHITE BLOOD COUNT (AUTO) 10.7 K/uL (4.8-10.8)
[2018-01-25 07:32] LABS: ALBUMIN 2.2 g/dL (3.4-4.8); CALCIUM 8.5 mg/dL (8.4-11.0); CREATININE 0.92 mg/dL (0.55-1.30); PHOSPHORUS 3.3 mg/dL (2.7-4.5); POTASSIUM 3.5 mmol/L (3.5-5.1); TOTAL BILIRUBIN 0.4 mg/dL (0.0-1.0)
[2018-01-25] MEDS: LIPASE/PROTEASE/AMYLASE 1 CAP PO SCH ×3 (08:00→16:56)
[2018-01-25] MEDS: CHOLECALCIFEROL (VITAMIN D3) 2,000 UNIT TABLET PO SCH (09:00)
[2018-01-25] MEDS: CITALOPRAM HYDROBROMIDE 20 MG TABLET PO SCH (09:00)
[2018-01-25] MEDS: SIMETHICONE 80 MG TAB.CHEW PO SCH ×3 (09:00→21:00)
[2018-01-25] MEDS: MULTIVITS,CA,MINERALS/IRON/FA 1 TABLET PO SCH ×2 (09:00→21:00)
[2018-01-25] MEDS: LACTOBACILLUS RHAMNOSUS GG 1 CAP CAPSULE PO SCH ×2 (09:00→21:00)
[2018-01-25] MEDS: CYANOCOBALAMIN 1000 mCg TABLET PO SCH (09:00)
[2018-01-25] MEDS: ENOXAPARIN SODIUM 40 MG/0.4 ML SYRINGE SUBCUT SCH ×2 (09:33→21:53)
[2018-01-25] MEDS: FLUCONAZOLE 200 mg/ NS 100 ML IV SCH (11:17)
[2018-01-25 12:28] VITALS: BP_SYST 105
[2018-01-25 16:00] VITALS: BP_SYST 107
[2018-01-25] MEDS: FAT EMULSIONS 250 ML IV SCH (16:56)
[2018-01-25] MEDS: ESTRADIOL 0.075 MG TP SCH (16:58)
[2018-01-25] MEDS ORDERED: POTASSIUM CHLORIDE IV SCH ×10 (18:00)
[2018-01-25] MEDS ORDERED: TPN CENTRAL IV SCH ×10 (18:00)
[2018-01-25] MEDS ORDERED: [UNRECOGNIZED DRUG - OTHER] IV SCH ×10 (18:00)
[2018-01-25] MEDS ORDERED: SODIUM ACETATE IV SCH ×10 (18:00)
[2018-01-25] MEDS ORDERED: K PHOS IV SCH ×10 (18:00)
[2018-01-25] MEDS: PROGESTERONE 100 MG PO SCH (21:00)
[2018-01-25 21:55] VITALS: BP_SYST 119
[2018-01-26] VITALS: BP_SYST 109
[2018-01-26] MEDS: METOCLOPRAMIDE HCL 10 MG/2 ML VIAL IVP SCH ×4 (00:31→18:13)
[2018-01-26] MEDS: D5LR 1,000 ML IV SCH (06:11)
[2018-01-26] MEDS: PIPERACILLIN/TAZO 4.5GM/DEX-IS 100 ML IV SCH ×3 (06:11→21:14)
[2018-01-26] MEDS: metroNIDAZOLE 500 mg/NS 100 ML IV SCH ×3 (06:11→21:15)
[2018-01-26 07:05] LABS: BASOPHILS # (AUTO) 0.1 K/uL (0.0-0.2); BASOPHILS % (AUTO) 0.8 % (0.0-2.0); EOSINOPHILS # (AUTO) 0.1 K/uL (0.0-0.4); HEMATOCRIT 32.9 % (36-48); HEMOGLOBIN 11.1 g/dL (12.0-16.0); LYMPHOCYTES # (AUTO) 2.4 K/uL (1.0-5.5); LYMPHOCYTES % (AUTO) 21.7 % (20.5-51.5); MEAN CORPUSCULAR HEMOGLOBIN 32 pg (27-31); MEAN CORPUSCULAR HGB CONC 34 % (32-36); MEAN CORPUSCULAR VOLUME 96 fL (79.0-98.0); MONOCYTES # (AUTO) 0.6 K/uL (0.0-1.0); MONOCYTES % (AUTO) 4.9 % (1.7-9.3); NEUTROPHILS % (AUTO) 71.6 % (40.0-70.0); PLATELET COUNT (AUTO) 533 K/uL (130-430); RED BLOOD CELL COUNT(AUTO) 3.44 MIL/uL (4.2-6.2); RED CELL DISTRIBUTION WIDTH 13.5 % (9.0-15.0); WHITE BLOOD COUNT (AUTO) 11.2 K/uL (4.8-10.8)
[2018-01-26 07:43] LABS: CALCIUM 8.3 mg/dL (8.4-11.0); CREATININE 0.72 mg/dL (0.55-1.30); PHOSPHORUS 2.6 mg/dL (2.7-4.5); POTASSIUM 3.2 mmol/L (3.5-5.1)
[2018-01-26] MEDS: LIPASE/PROTEASE/AMYLASE 1 CAP PO SCH ×3 (08:00→17:11)
[2018-01-26 08:14] LABS: INR 1.1 (0.8-1.2); PROTHROMBIN TIME 11.1 SECS (9.5-12.5)
[2018-01-26] MEDS: SIMETHICONE 80 MG TAB.CHEW PO SCH ×3 (08:20→21:00)
[2018-01-26] MEDS: CHOLECALCIFEROL (VITAMIN D3) 2,000 UNIT TABLET PO SCH (08:20)
[2018-01-26] MEDS: LACTOBACILLUS RHAMNOSUS GG 1 CAP CAPSULE PO SCH ×2 (08:20→21:00)
[2018-01-26] MEDS: MULTIVITS,CA,MINERALS/IRON/FA 1 TABLET PO SCH ×2 (08:20→21:00)
[2018-01-26] MEDS: CITALOPRAM HYDROBROMIDE 20 MG TABLET PO SCH (08:20)
[2018-01-26] MEDS: CYANOCOBALAMIN 1000 mCg TABLET PO SCH (08:20)
[2018-01-26 08:32] VITALS: BP_SYST 97
[2018-01-26] MEDS: ENOXAPARIN SODIUM 40 MG/0.4 ML SYRINGE SUBCUT SCH ×2 (08:33→21:20)
[2018-01-26] MEDS: VANCOMYCIN HCL 1 GM/NS PREMIX 250 ML IV SCH (10:52)
[2018-01-26 11:12] VITALS: BP_SYST 112
[2018-01-26] MEDS: INSULIN REGULAR, HUMAN 100 UNITS/ML, 10 ML VIAL (novoLIN R) SUBCUT PRN ×2 (11:51→18:13)
[2018-01-26] MEDS: FLUCONAZOLE 200 mg/ NS 100 ML IV SCH (13:30)
[2018-01-26] MEDS: BENZOCAINE/MENTHOL 1 EACH LOZENGE MM PRN ×2 (13:33→21:26)
[2018-01-26] MEDS ORDERED: K PHOS 15 MM in NS 250 ML IV ONE (16:45)
[2018-01-26 17:02] VITALS: BP_SYST 106
[2018-01-26] MEDS: FAT EMULSIONS 250 ML IV SCH (17:52)
[2018-01-26] MEDS ORDERED: [UNRECOGNIZED DRUG - OTHER] IV SCH ×9 (18:00)
[2018-01-26] MEDS ORDERED: K PHOS IV SCH ×9 (18:00)
[2018-01-26] MEDS ORDERED: POTASSIUM CHLORIDE IV SCH ×9 (18:00)
[2018-01-26] MEDS ORDERED: SODIUM ACETATE IV SCH ×9 (18:00)
[2018-01-26] MEDS ORDERED: TPN CENTRAL IV SCH ×9 (18:00)
[2018-01-26 19:10] VITALS: BP_SYST 111
[2018-01-26] MEDS: PROGESTERONE 100 MG PO SCH (21:00)
[2018-01-26] MEDS: VANCOMYCIN HCL 1.25 GM/NS 250 ML IV SCH (21:14)
[2018-01-27 00:23] VITALS: BP_SYST 120
[2018-01-27] MEDS: METOCLOPRAMIDE HCL 10 MG/2 ML VIAL IVP SCH ×4 (00:34→17:44)
[2018-01-27] MEDS: D5LR 1,000 ML IV SCH ×2 (00:34→14:34)
[2018-01-27] MEDS: BENZOCAINE/MENTHOL 1 EACH LOZENGE MM PRN (04:46)
[2018-01-27] MEDS: metroNIDAZOLE 500 mg/NS 100 ML IV SCH ×4 (05:38→22:26)
[2018-01-27] MEDS: PIPERACILLIN/TAZO 4.5GM/DEX-IS 100 ML IV SCH ×3 (05:38→21:09)
[2018-01-27 07:22] LABS: BASOPHILS % (AUTO) 0.3 % (0.0-2.0); EOSINOPHILS # (AUTO) 0.1 K/uL (0.0-0.4); EOSINOPHILS % (AUTO) 0.9 % (0.0-4.0); HEMATOCRIT 31.6 % (36-48); HEMOGLOBIN 10.3 g/dL (12.0-16.0); LYMPHOCYTES # (AUTO) 2.4 K/uL (1.0-5.5); LYMPHOCYTES % (AUTO) 20.8 % (20.5-51.5); MEAN CORPUSCULAR HEMOGLOBIN 32 pg (27-31); MEAN CORPUSCULAR HGB CONC 33 % (32-36); MEAN CORPUSCULAR VOLUME 97 fL (79.0-98.0); MONOCYTES # (AUTO) 0.7 K/uL (0.0-1.0); MONOCYTES % (AUTO) 6.1 % (1.7-9.3); NEUTROPHILS # (AUTO) 8.4 K/uL (1.8-7.7); NEUTROPHILS % (AUTO) 71.9 % (40.0-70.0); PLATELET COUNT (AUTO) 486 K/uL (130-430); RED BLOOD CELL COUNT(AUTO) 3.25 MIL/uL (4.2-6.2); RED CELL DISTRIBUTION WIDTH 13.7 % (9.0-15.0); WHITE BLOOD COUNT (AUTO) 11.6 K/uL (4.8-10.8)
[2018-01-27] MEDS: LIPASE/PROTEASE/AMYLASE 1 CAP PO SCH ×3 (07:37→17:44)
[2018-01-27 08:00] LABS: CREATININE 0.83 mg/dL (0.55-1.30); POTASSIUM 3.7 mmol/L (3.5-5.1); TOTAL BILIRUBIN 0.3 mg/dL (0.0-1.0)
[2018-01-27 08:30] VITALS: BP_SYST 107
[2018-01-27] MEDS: CITALOPRAM HYDROBROMIDE 20 MG TABLET PO SCH (08:33)
[2018-01-27] MEDS: CHOLECALCIFEROL (VITAMIN D3) 2,000 UNIT TABLET PO SCH (08:33)
[2018-01-27] MEDS: CYANOCOBALAMIN 1000 mCg TABLET PO SCH (08:33)
[2018-01-27] MEDS: SIMETHICONE 80 MG TAB.CHEW PO SCH ×3 (08:33→21:10)
[2018-01-27] MEDS: MULTIVITS,CA,MINERALS/IRON/FA 1 TABLET PO SCH ×2 (08:33→21:10)
[2018-01-27] MEDS: LACTOBACILLUS RHAMNOSUS GG 1 CAP CAPSULE PO SCH ×2 (08:33→21:10)
[2018-01-27] MEDS: PANTOPRAZOLE SODIUM 40 MG/VIAL (PROTONIX) IVP SCH ×2 (09:42→21:10)
[2018-01-27] MEDS: ENOXAPARIN SODIUM 40 MG/0.4 ML SYRINGE SUBCUT SCH ×2 (09:45→21:20)
[2018-01-27] MEDS: VANCOMYCIN HCL 1.25 GM/NS 250 ML IV SCH (09:54)
[2018-01-27 10:17] VITALS: BP_SYST 107
[2018-01-27] MEDS: INSULIN REGULAR, HUMAN 100 UNITS/ML, 10 ML VIAL (novoLIN R) SUBCUT PRN ×2 (11:30→17:43)
[2018-01-27] MEDS: FLUCONAZOLE 200 mg/ NS 100 ML IV SCH (11:31)
[2018-01-27 12:30] VITALS: BP_SYST 105
[2018-01-27] MEDS ORDERED: COMMUNICATION ORDER XX ONE (13:30)
[2018-01-27 17:00] VITALS: BP_SYST 109
[2018-01-27] MEDS ORDERED: K PHOS IV SCH ×9 (18:00)
[2018-01-27] MEDS ORDERED: POTASSIUM CHLORIDE IV SCH ×9 (18:00)
[2018-01-27] MEDS ORDERED: SODIUM ACETATE IV SCH ×9 (18:00)
[2018-01-27] MEDS ORDERED: TPN CENTRAL IV SCH ×9 (18:00)
[2018-01-27] MEDS ORDERED: [UNRECOGNIZED DRUG - OTHER] IV SCH ×9 (18:00)
[2018-01-27 20:00] VITALS: BP_SYST 94
[2018-01-27] MEDS: PROGESTERONE 100 MG PO SCH (21:11)
[2018-01-27] MEDS: ESTRADIOL 0.075 MG TP SCH (21:25)
[2018-01-28] MEDS: METOCLOPRAMIDE HCL 10 MG/2 ML VIAL IVP SCH ×3 (00:03→11:36)
[2018-01-28] MEDS: VANCOMYCIN HCL 1.25 GM/NS 250 ML IV SCH (00:05)
[2018-01-28 00:12] VITALS: BP_SYST 99
[2018-01-28] MEDS: D5LR 1,000 ML IV SCH (04:52)
[2018-01-28] MEDS: metroNIDAZOLE 500 mg/NS 100 ML IV SCH ×2 (05:17→14:06)
[2018-01-28] MEDS: PIPERACILLIN/TAZO 4.5GM/DEX-IS 100 ML IV SCH (06:34)
[2018-01-28 06:54] LABS: BASOPHILS % (AUTO) 0.2 % (0.0-2.0); EOSINOPHILS # (AUTO) 0.1 K/uL (0.0-0.4); EOSINOPHILS % (AUTO) 1.4 % (0.0-4.0); HEMATOCRIT 29.3 % (36-48); HEMOGLOBIN 9.6 g/dL (12.0-16.0); LYMPHOCYTES # (AUTO) 2.2 K/uL (1.0-5.5); LYMPHOCYTES % (AUTO) 22.5 % (20.5-51.5); MEAN CORPUSCULAR HEMOGLOBIN 32 pg (27-31); MEAN CORPUSCULAR HGB CONC 33 % (32-36); MEAN CORPUSCULAR VOLUME 96 fL (79.0-98.0); MONOCYTES # (AUTO) 0.6 K/uL (0.0-1.0); MONOCYTES % (AUTO) 5.9 % (1.7-9.3); NEUTROPHILS # (AUTO) 6.9 K/uL (1.8-7.7); PLATELET COUNT (AUTO) 408 K/uL (130-430); RED BLOOD CELL COUNT(AUTO) 3.05 MIL/uL (4.2-6.2); RED CELL DISTRIBUTION WIDTH 13.4 % (9.0-15.0); WHITE BLOOD COUNT (AUTO) 9.8 K/uL (4.8-10.8)
[2018-01-28 07:42] LABS: CREATININE 1.01 mg/dL (0.55-1.30); POTASSIUM 4.3 mmol/L (3.5-5.1)
[2018-01-28 08:02] LABS: TOTAL BILIRUBIN 0.3 mg/dL (0.0-1.0)
[2018-01-28 08:22] VITALS: BP_SYST 103
[2018-01-28] MEDS: LIPASE/PROTEASE/AMYLASE 1 CAP PO SCH ×2 (08:45→11:36)
[2018-01-28] MEDS: LACTOBACILLUS RHAMNOSUS GG 1 CAP CAPSULE PO SCH (08:46)
[2018-01-28] MEDS: CYANOCOBALAMIN 1000 mCg TABLET PO SCH (08:46)
[2018-01-28] MEDS: SIMETHICONE 80 MG TAB.CHEW PO SCH (08:46)
[2018-01-28] MEDS: MULTIVITS,CA,MINERALS/IRON/FA 1 TABLET PO SCH (08:46)
[2018-01-28] MEDS: CITALOPRAM HYDROBROMIDE 20 MG TABLET PO SCH (08:46)
[2018-01-28] MEDS: CHOLECALCIFEROL (VITAMIN D3) 2,000 UNIT TABLET PO SCH (08:46)
[2018-01-28] MEDS: PANTOPRAZOLE SODIUM 40 MG/VIAL (PROTONIX) IVP SCH (08:47)
[2018-01-28] MEDS: ENOXAPARIN SODIUM 40 MG/0.4 ML SYRINGE SUBCUT SCH (08:48)
[2018-01-28] MEDS: FLUCONAZOLE 200 mg/ NS 100 ML IV SCH (11:36)
[2018-01-28] MEDS ORDERED: *PPN PER PHARMACY XX PRN (11:45)
[2018-01-28] MEDS ORDERED: DEXTROSE 50% JECT 50 ML DISP.SYRIN IVP PRN (11:45)
[2018-01-28] MEDS ORDERED: INSULIN REGULAR, HUMAN 100 UNITS/ML, 10 ML VIAL (novoLIN R) SUBCUT PRN (11:45)
[2018-01-28 11:54] VITALS: BP_SYST 97
[2018-01-28] MEDS ORDERED: LIPA1CAP23 PO (12:02)
[2018-01-28] MEDS ORDERED: L.RH1CAP PO (12:03)
[2018-01-28] MEDS ORDERED: FLA250 PO (12:03)
[2018-01-28] MEDS ORDERED: DIF100 PO (12:03)
[2018-01-28] MEDS ORDERED: MULT-1184 PO (12:04)
[2018-01-28 12:19] VITALS: BP_SYST 109
[2018-01-28 12:45] LABS: PHOSPHORUS 2.4 mg/dL (2.7-4.5)
[2018-01-28 16:23] VITALS: BP_SYST 109
[2018-01-28] MEDS ORDERED: FAT EMULSIONS 250 ML IV SCH (18:00)
[2018-01-28] MEDS ORDERED: [UNRECOGNIZED DRUG - OTHER] IV SCH ×8 (18:00)
[2018-01-28] MEDS ORDERED: K PHOS IV SCH ×8 (18:00)
[2018-01-28] MEDS ORDERED: TPN PERIPHERAL IV SCH ×8 (18:00)
[2018-01-28] MEDS ORDERED: SODIUM ACETATE IV SCH ×8 (18:00)
== END 2018-01-28 16:05 | disposition short-term general hospital (02) | DRG 853 ==
LOC: SED 16:08 → SMU 23:16 → STU 01-12 17:17 → SIC 01-12 19:24 → STU 01-16 15:29 → SMU 01-18 17:39 → STU 01-23 23:18 → SMU 01-27 14:04
PROVIDERS: ADMIT Internal Medicine; ATTEND Internal Medicine
PROC: 02HV33Z Insertion of Infusion Device into Superior Vena Cava, Percutaneous Approach (ICD-10-PCS; 2018-01-11)
PROC: B548ZZA Ultrasonography of Superior Vena Cava, Guidance (ICD-10-PCS; 2018-01-11)
PROC: 0DTJ4ZZ Resection of Appendix, Percutaneous Endoscopic Approach (ICD-10-PCS; principal; 2018-01-12 14:00)
PROC: 0D9670Z Drainage of Stomach with Drainage Device, Via Natural or Artificial Opening (ICD-10-PCS; 2018-01-24)
DX: A41.9 Sepsis, unspecified organism (principal); R65.21 Severe sepsis with septic shock; J18.9 Pneumonia, unspecified organism; E43 Unspecified severe protein-calorie malnutrition; K35.30 Acute appendicitis with localized peritonitis, without perforation or gangrene; D62 Acute posthemorrhagic anemia; K56.7 Ileus, unspecified; J98.11 Atelectasis; K56.609 Unspecified intestinal obstruction, unspecified as to partial versus complete obstruction; K58.9 Irritable bowel syndrome, unspecified; K04.7 Periapical abscess without sinus; F90.9 Attention-deficit hyperactivity disorder, unspecified type; F32.9 Major depressive disorder, single episode, unspecified; D72.829 Elevated white blood cell count, unspecified; E87.6 Hypokalemia; E83.39 Other disorders of phosphorus metabolism; B96.20 Unspecified Escherichia coli [E. coli] as the cause of diseases classified elsewhere; Z68.25 Body mass index [BMI] 25.0-25.9, adult
CPT/HCPCS: 36415; 71045; 74018; 76700-TC; 78800; 80048; 80053; 80202-TC; 81000-TC; 82150-TC; 82533; 82607; 82962; 83540-TC; 83550-TC; 83690-TC; 83735-TC; 84100-TC; 84478-TC; 84484; 85007; 85025; 85027; 85610-TC; 85730-TC; 87040-TC; 87070; 87070-TC; 87075-TC; 87081; 87086; 87186-TC; 88304; 93005; 94010; 94760; 96374; 96375; 97116-GP; 97530-GP; 99285; A9556; C1727; C1751; C9113; G0378; J0295; J0610; J0696; J1265; J1450; J1650; J1815; J1885; J1956; J2250; J2270; J2405; J2543; J2704; J2710; J2765; J2916; J3010; J3370; J3420; J3475; J3480; J3490; J7030; J7050; J7060; J7120; Q9964; Q9967